=== PATIENT | male | born 1960 | race Caucasian/White ===

== ENCOUNTER → 2016-12-22 | Outpatient (CLI) | payer MEDICARE ==
[~2016-12-22] MED LIST: ALBUTEROL2.5 MG/NEB INH; TRAMADOL 50MG T50 M1 PO; VENTOLIN H0.09 MG/AC IH
--- NOTE | 2016-12-24 09:45 | RADIOLOGY REPORT PS360 ---
MRI-L-SPINE W/O, MRI-3D RENDERING/MYELOGRAM HISTORY: Worsening back pain, low back pain with bilateral hip and leg pain with tingling WORSENING BACK PAIN ORDERING PHYSICIAN: SHEREE SOUZA CRNA PATIENT AGE: 56 years COMPARISON: None TECHNIQUE: Standard multiplanar multiecho sequences are performed without contrast. 3-D MIP and myelographic images are also rendered and reviewed FINDINGS: There is normal alignment. Spinal cord ends at the T12-L1 level. T11-T12: Very minimal central disc protrusion with mild degenerative disc disease. No neural impingement. T12-L1: Unremarkable. L1-L2, L2-L3, L3-L4, L4-L5: Slight disc desiccation with minor decrease in the disc space. L5-S1: Mild degenerative disc disease. No disc herniation, canal stenosis, neural impingement, fracture or other significant anomalies. IMPRESSION: Mild spondylosis of the lumbar spine. No disc herniation or canal stenosis.
== END ==
LOC: RAD 16:15
DX: M54.5 Low back pain (principal)